=== PATIENT | female | born 1985 | race Caucasian/White ===

== ENCOUNTER 2018-07-19 19:18 | Inpatient (IN) | payer OTHER ==
[~2018-07-19] VITALS: Ht 165.1 cm; Wt 139.2 kg
[~2018-07-19 19:18] MED LIST: PREN1TAB49 PO
[2018-07-19 20:55] VITALS: BP 131/75; PULSE 96; RESP 17
[2018-07-19] MEDS ORDERED: AL HYDROX/MG HYDROX/SIMETH 30 ML CUP PO PRN (21:00)
[2018-07-19] MEDS ORDERED: ACETAMINOPHEN 325 MG TAB PO PRN (21:00)
[2018-07-19] MEDS ORDERED: DEXTROSE 50% 50 ML SYRINGE IV PRN ×2 (22:30)
[2018-07-19] MEDS ORDERED: GLUCOSE GEL 15 GRAM TUBE BUCCAL PRN (22:30)
[2018-07-19] MEDS ORDERED: GLUCAGON 1 MG INJ IM PRN (22:30)
[2018-07-19] MEDS ORDERED: GLUCOSE GEL 15 GRAM TUBE PO PRN ×2 (22:30)
--- NOTE | 2018-07-20 00:21 | TRIAGE ---
OB Triage Datetime Report Generated by CPN: 07/20/2018 00:21 Datetime: 07/19/2018 23:10 Assessment Type: Admission Assessment Vaginal Bleeding: None Maternal Assessment Level of Consciousness: Fully Conscious DTR's/Clonus: DTRs 2+; No Clonus Headache: Denies Blurred Vision: No Respiratory Effort: Unlabored; Regular Rhythm; Equal Expansion Breath Sounds, Left: Clear and Equal Breath Sounds, Right: Clear and Equal Nausea/Vomiting: Denies RUQ Epigastric Pain: Denies Lower Extremities Edema: None Degree: None Upper Extremities Edema: None Degree: None Facial Edema: None Fall Risk Assessment History of Falling: (0) No Secondary Diagnosis: (0) No Ambulatory Aid: (0) Bedrest/Nurse Assist IV Therapy: (0) No Gait: (0) Normal/Bedrest/Immobile Mental Status: (0) Oriented to Own Ability Fall Score: 0 Fall Risk Score Definition: No Risk: No action required Pain Assessment Pain Scale: 0 Pain Presence: None/Denies Pain Type: N/A Vaginal Exam Membrane Status: Intact Datetime: 07/19/2018 22:54 Vaginal Exam Membrane Status: Intact Datetime: 07/19/2018 20:16 Time of Arrival: 07/19/2018 19:13 EGA: 31.0 Arrived By: Ambulatory Arrived From: Home Chief Complaint: sent from clinic d/t newly diagnosed GDM uncontrolled Movement: Present Contractions: Denies/Absent Rupture of Membranes: Denies Vaginal Bleeding: None Vaginal Discharge: Denies Recent Sexual Intercouse: Denies Abdominal Trauma: Not Applicable Patient Complaints: Other Time Provider Notified: 07/20/2018 20:25 Provider Notified: Dr Nazario Initial Plan: [facility]
[2018-07-20] MEDS: INSULIN ASPART [NOVOLOG] 3 ML PEN SC SCH ×4 (09:00→21:32)
[2018-07-20] MEDS: PRENATAL VITAMIN PO SCH (09:21)
[2018-07-20] MEDS: FERROUS SULFATE (EC) 325 MG TAB PO SCH (09:21)
--- NOTE | 2018-07-20 12:45 | RADRPT ---
Vent Rate: 90 bpm RR Interval: 0 msec OH Interval: 124 msec QRS Duration: 72 msec QT Interval: 358 msec QTC Interval: 437 msec P-R-T [place]: 59 - 27 - 29 degrees Normal sinus rhythm Normal ECG Electronically Signed By: Handy Fitch
[2018-07-20] MEDS ORDERED: metFORMIN 500 MG TAB PO SCH (17:35)
--- NOTE | 2018-07-20 18:43 | HP ---
Date/Time of Note Date/Time of Note DATE: 07/20/18 TIME: 18:40 OB - History Hx of Present Chief Complaint: uncontrolled GDM Estimated Due Date: Sep 20, 2018 : 5 Para: 4 Spontaneous : 0 Therapeutic : 0 Care: Good Care Ultrasounds: Normal mid trimester US Obstetrical Complications: Gestational Diabetes Medical Complications: None Past Family/Social History * Past Medical, Surgical, Family and Obstetric Histories reviewed from chart. OB Admission Exam Vital Signs Vital Signs Vital Signs Date Temp Pulse Resp B/P (MAP) Pulse Ox O2 O2 Flow FiO2 Time Delivery Rate 07/19/18 97.8 96 17 131/75 Room Air 20:55 (93) Physical Exam HEENT: WNL Heart: Rhythm Normal Lungs: Clear, Equal Abdomen: WNL Extremities: Normal Reflexes: Normal Heart Rate: 130's Accelerations: Accelerations Present Decelerations: No Decelerations Varibility: Moderate Last 72 hourBlood Glucose Bedside Glucose - 72 Hours Test 07/20/18 08:57 07/20/18 11:19 07/20/18 14:56 Bedside Glucose 107 mg/dL (70-220) 111 mg/dL (70-220) 104 mg/dL (70-220) Last 72 hours Lab Results CBC & BMP 07/19/18 20:58 Liver Function Test 07/19/18 20:58 Alanine Aminotransferase (ALT/SGPT) 14 Albumin 3.5 Alkaline Phosphatase 76 Aspartate Amino Transf (AST/SGOT) 12 L Direct Bilirubin 0.00 Total Protein 6.5 Hemoglobin A1C Test 07/19/18 20:58 Hemoglobin A1c 5.9 OB Assessment/Plan Reason for admission: other Other Assessment: uncontrolled GDM Plan: Other Other plan: Admit ADA diet AccuChecks Perinatology consult MANISH JOHANSEN MD July 20, 2018 18:43
--- NOTE | 2018-07-21 05:40 | CONS ---
DATE OF ADMISSION: 07/19/2018 DATE OF CONSULTATION: 07/20/2018 HISTORY OF PRESENT ILLNESS: The patient is at 31 weeks and 1 day, admitted for diabetes control. Wh en I contact the labor and delivery this morning, there were only 2 available glucose values of fasti ng 107, 2-hour after breakfast 111. RECOMMENDATIONS: Start 500 mg of metformin at bedtime and if her afternoon values are again all norm al, the patient can be discharged home for followup as an outpatient. She also had a chronic hyperte nsion. Blood pressures have been normal to overall moderate range. Dictated By: JULIEN SALINAS MD ST/NTS Conf#: [id number] DID#: [id number] CC: MANISH JOHANSEN MD;*End*
[2018-07-21] MEDS: INSULIN ASPART [NOVOLOG] 3 ML PEN SC SCH (07:35)
[2018-07-21] MEDS: FERROUS SULFATE (EC) 325 MG TAB PO SCH (09:25)
[2018-07-21] MEDS: PRENATAL VITAMIN PO SCH (09:26)
--- NOTE | 2018-07-21 15:56 | QN ---
Documentation Comment Patient was started on metformin 500 mg PO QHS Fasting glucose 97 today Case discussed with Dr Gomez ([facility]) who recommends to d/c patient home MANISH JOHANSEN MD July 21, 2018 15:56
--- NOTE | 2018-07-24 18:00 | DS ---
Date/Time of Note Date/Time of Note DATE: 07/24/18 TIME: 17:59 Obstetrical Discharge Record Final Diagnosis Final Diagnosis: not delivered Other Final Diagnosis Gestational Diabetes, Class A2 Complications Gestational Diabetes Condition on Discharge Physical Assessment Voiding: Yes Bowel Movement: Yes Calf Tenderness: No Patient Condition: Stable MANISH JOHANSEN MD July 24, 2018 18:00
== END 2018-07-21 16:22 | disposition home or self-care (01) | DRG 833 ==
LOC: OBT 19:18 → L-D 19:18 → OBT 20:26 → L-D 20:26
PROVIDERS: ADMIT Obstetrics & Gynecology; ATTEND Obstetrics & Gynecology
DX: O24.419 Gestational diabetes mellitus in pregnancy, unspecified control (principal); Z3A.31 31 weeks gestation of pregnancy
CPT/HCPCS: 76815; 76818; 80053; 81001; 82575; 82962; 83036; 84156; 84560; 85025; 86850; 86900; 86901; 93005; G0463; J1815

== ENCOUNTER 2018-09-04 11:47 | Outpatient (CLI) | payer OTHER ==
[~2018-09-04] VITALS: Ht 165.1 cm; Wt 139.1 kg
[2018-09-04 12:07] VITALS: Ht 165.1 cm; Wt 139.1 kg
[2018-09-04 12:08] VITALS: BP 141/93; PULSE 95; RESP 18
[2018-09-04] MEDS ORDERED: METF-849 PO (12:10)
--- NOTE | 2018-09-04 15:08 | PN ---
Triage Information Date/Time Reason for visit: Extended monitoring.Had a variable earlier Weeks of Gestation 37+ /Para n/a Diabetes: none Hypertention: none Objective Vital Signs Date Temp Pulse Resp B/P (MAP) Pulse Ox O2 O2 Flow FiO2 Time Delivery Rate 09/04/18 98.2 95 18 141/93 12:08 (109) Heart Rate: 140's Contractions: None Results/Medications Results 24 hrs Laboratory Tests Test 09/04/18 14:24 Bedside Glucose 96 Disposition: Discharge Assessment/Plan NST reassuring ad Reactive Discharged with precautions Questions answered F/u with provider Repeat NST BPP in 2days FLORES WHARTON M.D. Sep 04, 2018 15:08
== END 2018-09-04 15:22 | disposition home or self-care (01) ==
LOC: OBT 11:47 → L-D 11:48 → OBT 15:22
PROVIDERS: ATTEND Obstetrics & Gynecology
DX: O62.9 Abnormality of forces of labor, unspecified (principal); Z3A.37 37 weeks gestation of pregnancy
CPT/HCPCS: 82962; Z7500; G0463

== ENCOUNTER 2018-09-15 08:00 | Inpatient (IN) | payer OTHER ==
[~2018-09-15] VITALS: Ht 165.1 cm; Wt 140.5 kg
[~2018-09-15 08:00] MED LIST changes: +METF-849 PO
[2018-09-15] MEDS ORDERED: LACTATED RINGER'S 1,000 ML IV SCH ×2 (08:26→19:56)
[2018-09-15] MEDS ORDERED: LIDOCAINE 1% (MPF) 30 ML INJ INJ PRN (08:30)
[2018-09-15] MEDS ORDERED: MISOPROSTOL 200 MCG TAB PR PRN (08:30)
[2018-09-15] MEDS ORDERED: OXYTOCIN 30 UNITS/LR 500 ML IV SCH ×3 (08:30→13:30)
[2018-09-15] MEDS ORDERED: IBUPROFEN 600 MG TAB PO PRN (08:30)
[2018-09-15] MEDS ORDERED: METHYLERGONOVINE 0.2 MG INJ IM PRN (08:30)
[2018-09-15] MEDS ORDERED: AMPICILLIN 2 GM/NS (PMX) 100 ML IV ONE (08:30)
[2018-09-15] MEDS ORDERED: OXYTOCIN 30 UNITS/LR 500 ML IV PRN (08:30)
[2018-09-15] MEDS ORDERED: BUTORPHANOL 2 MG INJ IV PRN (08:30)
[2018-09-15] MEDS ORDERED: CARBOPROST 250 MCG INJ IM PRN (08:30)
[2018-09-15 09:19] VITALS: Ht 165.1 cm; Wt 140.5 kg
[2018-09-15] MEDS ORDERED: MISOPROSTOL 50 MCG CAPSULE PO ONE (10:09)
[2018-09-15] MEDS ORDERED: AMPICILLIN 1 GM/NS (PMX) 50 ML IV SCH (12:30)
--- NOTE | 2018-09-15 13:18 | HP ---
Date/Time of Note Date/Time of Note DATE: 09/15/18 TIME: 13:15 OB - History Hx of Present Chief Complaint: induction of labor Estimated Due Date: Sep 20, 2018 : 5 Para: 4 Spontaneous : 0 Therapeutic : 0 Care: Good Care Ultrasounds: Normal mid trimester US Obstetrical Complications: Gestational Diabetes Medical Complications: None Past Family/Social History * Past Medical, Surgical, Family and Obstetric Histories reviewed from chart. GBS Status: Negative OB Admission Exam Physical Exam HEENT: WNL Heart: Rhythm Normal Lungs: Clear, Equal Abdomen: WNL Extremities: Normal Reflexes: Normal Cervical Dilatation: Fingertip Effacement: 50% Station: -2 Membranes: Intact Heart Rate: 130's Accelerations: Accelerations Present Decelerations: No Decelerations Varibility: Moderate Last 72 hourBlood Glucose Bedside Glucose - 72 Hours Test 09/15/18 11:36 Bedside Glucose 86 mg/dL (70-220) Last 72 hours Lab Results CBC & BMP 09/15/18 09:32 OB Assessment/Plan Reason for admission: induction of labor Plan: Induction Induction Method: per Misoprostol Protocol MANISH JOHANSEN MD Sep 15, 2018 13:18
[2018-09-15] MEDS ORDERED: LACTATED RINGER'S 1,000 ML IV PRN (19:23)
[2018-09-15] MEDS ORDERED: MINERAL OIL LIGHT 10 ML VIAL TOP ONE (19:30)
[2018-09-15] MEDS ORDERED: DEXTROSE 5%-LR 1,000 ML IV SCH (19:56)
[2018-09-15] MEDS ORDERED: MAGNESIUM SULFATE 4 GM/100 ML 100 ML IV ONE (20:00)
[2018-09-15] MEDS ORDERED: FENTAnyl 2MCG/ML-ROPIV 0.2% 100 ML ONE (20:29)
[2018-09-15] MEDS ORDERED: MAGNESIUM SULFATE 20 GM/500 ML 500 ML IV SCH (20:30)
--- NOTE | 2018-09-15 20:56 | PREAC ---
Date/Time of Note Date/Time of Note DATE: 09/15/18 TIME: 20:54 Anesthesia Eval and Record Evaluation Time Pre-Procedure Interview DATE: 09/15/18 TIME: 20:04 Age 32 Sex female NPO: 8 hrs Preoperative diagnosis iup @ 39 wks., , niddm, gdm, labor Planned procedure seferino Past Medical History Past Medical History: Includes Endo: Diabetes : : (5), Para: (4), Gestational age: (39 wks.), Gestational diabetes (niddm, gdm) Surgery & Anesthesia Issues No known issue Meds Anticoagulation: No Beta Melly within 24 hr: No Reason Beta Melly not given: Pt. not on B-Melly Reported Medications Metformin* (Glucophage*) 500 Mg Tab, 500 MG PO WITH MEALS, #90 TAB 09/04/18 Vits W-Ca,Fe,Fa(<1MG) () 1 Tab Tablet, 1 TAB PO DAILY 01/13/11 Current Medications Lactated Ringer's 1,000 ml @ 75 mls/hr [id number] IV Last administered on 09/15/18at 09:30; Admin Dose 125 MLS/HR; Start 09/15/18 at 08:26 Butorphanol Tartrate (Stadol) 2 mg Q2H PRN IV .PAIN SCALE 6-10; Start 09/15/18 at 08:30 Lidocaine (Xylocaine 1% (Mpf)) 30 ml ONCE PRN INJ .EPISIOTOMY; Start 09/15/18 at 08:30 Oxytocin/Lactated Ringer's 500 ml @ 500 mls/hr ONCE POST IV ; Start 09/15/18 at 08:30 Oxytocin/Lactated Ringer's 500 ml @ 125 mls/hr POST IV ; Start 09/15/18 at 08:30 Ibuprofen (Motrin) 600 mg ONCE PRN PO .PAIN 1-5; Start 09/15/18 at 08:30 Oxytocin/Lactated Ringer's 500 ml @ 0 mls/hr ONCE PRN IV .VAGINAL BLEEDING; Start 09/15/18 at 08:30 Methylergonovine Maleate (Methergine) 0.2 mg ONCE PRN IM .VAGINAL BLEEDING; Start 09/15/18 at 08:30 Carboprost Tromethamine (Hemabate) 250 mcg ONCE PRN IM .VAGINAL BLEEDING; Start 09/15/18 at 08:30 Misoprostol (Cytotec) 1,[address] .VAGINAL BLEEDING; Start 09/15/18 at 08:30 Oxytocin/Lactated Ringer's 500 ml @ 0 mls/hr FOR INDUCTION IV Last administered on 09/15/18at 14:35; Admin Dose 1 MLS/HR; Start 09/15/18 at 13:30 Lactated Ringer's 1,000 ml @ 2,000 mls/hr Q30M PRN IV .ANESTHESIA Last administered on 09/15/18at 19:47; Admin Dose 2,000 MLS/HR; Start 09/15/18 at 19:23 Magnesium Sulfate 500 ml @ 50 mls/hr Q10H IV ; Start 09/15/18 at 20:30 Lactated Ringer's 1,000 ml @ 75 mls/hr [id number] IV ; Start 09/15/18 at 19:56 Dextrose/Lactated Ringer's 1,000 ml @ 75 mls/hr [id number] IV ; Start 09/15/18 at 19:56 Meds reviewed: Yes Allergies Coded Allergies: papaya (Verified Allergy, Mild, RASH, 07/19/18) No Known Allergies (Verified Allergy, Unknown, 07/19/18) Allergies Reviewed: Yes Labs/Studies Labs Reviewed: Reviewed by anesthesiologist Result Diagram: 09/15/18190809/15/181908 Laboratory Tests 09/15/18 19:09 Blood Bank Test 09/15/18 09:32 Antibody Screen NEGATIVE Blood Type A POSITIVE Rh Immune Globulin Candidate NO test: Positive Studies: ECG (n/a), CXR (n/a) Pre-procedure Exam Airway: Adequate mouth opening, Adequate thyromental dist Mallampati: Mallampati II Teeth: Normal Lung: Normal Heart: Normal ASA Physical Status ASA physical status: 2 Emergency: E Planned Anesthetic Neuraxial: Epidural Planned Pain Management Epidural, Parenteral pain med, Local by surgeon Pre-operative Attestations Prior to commencing anesthesia and surgery, the patient was re-evaluated, there was verification of: *The patient's identity *The results of appropriate recent lab work and preoperative vital signs *The above evaluation not changing prior to induction *Anesthetic plan, risk benefits, alternative and complications discussed with patient/family; questions answered; patient/family understands, accepts and wishes to proceed. Lpn Medical Assistant used BEBA VELASCO MD Sep 15, 2018 20:56
[2018-09-15] MEDS ORDERED: NALOXONE (0.4 MG/ML) INJ IV PRN (21:00)
[2018-09-15] MEDS ORDERED: FENTAnyl 2MCG/ML-ROPIV 0.2% 100 ML BAG EPI SCH (21:00)
--- NOTE | 2018-09-16 01:12 | LDN ---
Date/Time of Note Date/Time of Note DATE: 09/16/18 TIME: 01:10 Delivery Summary Weeks of Gestation 39 weeks and 3 days Placenta Delivered: Spontaneously Meconium: none Episiotomy: No Perineal laceration: 0 Anesthesia type: Epidural Estimated blood loss: 150 Sponge & Needle done & correct: Yes All needle counts correct: Yes Any foreign bodies felt in the: No Infant Delivery Information Sex Sex: female Apgars 1 Minute: 8 5 Minute: 9 Suctioning Nose & mouth suctioned at lexa: No Delee suction performed: No Umbilical Cord Umbilical cord with: 3 Vessels Cord presentations: nuchal cord Nuchal cord present X: 2 Cord Blood was obtained: Yes Mother & Baby Disposition Disposition Mom & Baby to Maternity; Good: Yes MANISH JOHANSEN MD Sep 16, 2018 01:12
[2018-09-16] MEDS ORDERED: ONDANSETRON 4 MG INJ IV ONE (01:35)
[2018-09-16] MEDS: LACTATED RINGER'S 1,000 ML IV* SCH (02:39)
[2018-09-16] MEDS ORDERED: DIBUCAINE 1% 30 GM OINT TOP PRN (03:00)
[2018-09-16] MEDS ORDERED: OXYTOCIN 30 UNITS/LR 500 ML IV PRN (03:00)
[2018-09-16] MEDS ORDERED: CARBOPROST 250 MCG INJ IM PRN (03:00)
[2018-09-16] MEDS ORDERED: ACETAMINOPHEN 325 MG TAB PO PRN (03:00)
[2018-09-16] MEDS ORDERED: HYDROCODONE/APAP (5/325) TAB PO PRN (03:00)
[2018-09-16] MEDS ORDERED: BENZOCAINE 20% 56 ML SPRAY TOP PRN (03:00)
[2018-09-16] MEDS ORDERED: WITCH HAZEL/GLYCERIN PAD PR PRN (03:00)
[2018-09-16] MEDS ORDERED: MISOPROSTOL 200 MCG TAB PR PRN (03:00)
[2018-09-16 04:00] VITALS: BP 141/77; PULSE 92; RESP 20
[2018-09-16 04:30] VITALS: BP 121/66; PULSE 84; RESP 19
[2018-09-16] MEDS: IBUPROFEN 600 MG TAB PO SCH ×4 (05:36→23:30)
[2018-09-16 07:45] VITALS: BP 137/77; PULSE 64; RESP 18
--- NOTE | 2018-09-16 07:45 | PAC ---
Date/Time of Note Date/Time of Note DATE: 09/16/18 TIME: 07:45 Post-Anesthesia Notes Post-Anesthesia Note Last documented vital signs Vital Signs Date Temp Pulse Resp B/P (MAP) Pulse Ox O2 O2 Flow FiO2 Time Delivery Rate 09/16/18 84 19 121/66 Room Air 04:30 (84) 09/16/18 98.5 04:00 Activity: WNL Respiratory function: WNL Cardiovascular function: WNL Mental status: Baseline Pain reasonably controlled: Yes Hydration appropriate: Yes Nausea/Vomiting absent: Yes BEBA VELASCO MD Sep 16, 2018 07:45
[2018-09-16] MEDS: SENNA/DOCUSATE NA (8.6MG/50MG) TAB PO SCH ×2 (09:04→21:04)
[2018-09-16 16:00] VITALS: BP 126/69; PULSE 77; RESP 18
[2018-09-16] MEDS ORDERED: ACCU-CHEK XX SCH (17:35)
[2018-09-16 19:30] VITALS: BP 112/81; PULSE 67; RESP 19
[2018-09-17] VITALS: BP 135/71; PULSE 70; RESP 18
[2018-09-17] MEDS: LACTATED RINGER'S 1,000 ML IV* SCH (02:39)
[2018-09-17 04:00] VITALS: BP 114/61; PULSE 76; RESP 19
[2018-09-17] MEDS: IBUPROFEN 600 MG TAB PO SCH ×4 (05:44→23:39)
[2018-09-17 07:30] VITALS: BP 123/67; PULSE 84; RESP 18
[2018-09-17 07:56] VITALS: BP 123/69; PULSE 84; RESP 18
[2018-09-17] MEDS: SENNA/DOCUSATE NA (8.6MG/50MG) TAB PO SCH ×2 (08:38→20:08)
--- NOTE | 2018-09-17 14:12 | QN ---
Documentation Comment No complaint Afebrile VSS Fundus firm Lochia scant PPD #1 Stable Continue present care. MANISH JOHANSEN MD Sep 17, 2018 14:12
[2018-09-17 16:00] VITALS: BP 132/60; PULSE 72; RESP 18
[2018-09-17 19:45] VITALS: BP 123/68; PULSE 83; RESP 18
[2018-09-18] MEDS: LACTATED RINGER'S 1,000 ML IV* SCH ×2 (02:34→05:21)
[2018-09-18 05:00] VITALS: BP 133/74; PULSE 81; RESP 20
[2018-09-18] MEDS: IBUPROFEN 600 MG TAB PO SCH ×2 (05:35→11:33)
[2018-09-18 08:46] VITALS: BP 121/72; PULSE 72; RESP 17
[2018-09-18] MEDS ORDERED: DIPHTH/TET/ACEL PERTUSS (ADULT) 0.5 ML VIAL IM* ONE (09:00)
[2018-09-18] MEDS: SENNA/DOCUSATE NA (8.6MG/50MG) TAB PO SCH (09:26)
--- NOTE | 2018-09-18 12:26 | DS ---
Date/Time of Note Date/Time of Note DATE: 09/18/18 TIME: 12:26 Obstetrical Discharge Record Final Diagnosis Final Diagnosis: Term delivered Vaginal Delivery Obstetrical Delivery: Spontaneous Complications Gestational Diabetes Induction: Yes Condition on Discharge Physical Assessment Voiding: Yes Bowel Movement: Yes Breast: Soft, non-tender, Filling Fundus: Firm Calf Tenderness: No Patient Condition: Stable MANISH JOHANSEN MD Sep 18, 2018 12:26
[2018-09-18 16:38] VITALS: BP 135/75; PULSE 78; RESP 18
--- NOTE | 2018-09-19 18:13 | DELSUM ---
Delivery Summary A-C Datetime Report Generated by CPN: 09/19/2018 18:12 DELIVERY PERSONNEL Desk Editor: Isaías,[place] MATERNAL INFORMATION Delivery Anesthesia: Epidural Medications in Delivery: 30U PITOCIN WITH LR Delivery QBL (ml): 150 Placenta Cultured: No Maternal Complications: None Other Maternal Complications: ELEVATED BLOOD PRESSURES LABOR SUMMARY EDC: 09/20/2018 00:00 No. Babies in Womb: 1 Attempted: No Labor Anesthesia: Epidural LABOR INFORMATION Reason for Induction: Chronic Hypertension; Maternal Diabetes Onset of Labor: 09/15/2018 12:54 Complete Dilatation: 09/16/2018 00:49 Group B Beta Strep: Negative Antibiotics # of Doses: 0 Steroids Given: None Reason Steroids Not Administered: Not Applicable MEMBRANES Membranes Rupture Method: Spontaneous Rupture of Membranes: 09/15/2018 23:55 Length of Rupture (hr): 1.02 Amniotic Fluid Color: Clear Amniotic Fluid Amount: Moderate Amniotic Fluid Odor: None STAGES OF LABOR Stage 1 hr: 11 Stage 1 min: 55 Stage 2 hr: 0 Stage 2 min: 7 Stage 3 hr: 0 Stage 3 min: 3 Total Time in Labor hr: 12 Total Time in Labor min: 5 VAGINAL DELIVERY Episiotomy: None Laceration Extension: N/A Laceration Type: None Laceration Repair: Not Applicable Initial Vag Sponge Count: 10 Final Vag Sponge Count: 10 Initial Vag Sharps Count: 0 Final Vag Sharps Count: 0 Sponge Count Correct: Yes; Vaginal Sweep Performed Sharps Count Correct: Yes BABY A INFORMATION Delivery Date/Time: 09/16/2018 00:56 Method of Delivery: Vaginal Born in Route : No : N/A Forceps: N/A Vacuum Extraction: N/A Shoulder Dystocia : N/A SHOULDER DYSTOCIA BABY A Delivery Date/Time: 09/16/2018 00:56 PRESENTATION/POSITION BABY A Presentation: Cephalic Cephalic Presentation: Vertex Vertex Position: Right Occipital Anterior Breech Presentation: N/A PLACENTA INFORMATION BABY A Placenta Delivery Time : 09/16/2018 00:59 Placenta Method of Delivery: Expressed Placenta Status: Delivered SCORES BABY A Heart Rate 1 min: >100 bpm Resp Effort 1 min: Good Cry Reflex Irritability 1 min: Cough/Sneeze/Pulls Away Muscle Tone 1 min: Active Motion Color 1 min: Blue/Pale Resuscitation Effort 1 min: Tactile Stimulation SCORE 1 MIN: 8 Heart Rate 5 min: >100 bpm Resp Effort 5 min: Good Cry Reflex Irritability 5 min: Cough/Sneeze/Pulls Away Muscle Tone 5 min: Active Motion Color 5 min: Body [place], Extremit Blue Resuscitation Effort 5 min: Tactile Stimulation SCORE 5 MIN: 9 INFORMATION BABY A Gestational Age at Delivery: 39.3 Gestational Status: Full Term- 39- 40.6 Weeks Infant Outcome : Liveborn, with signs of life Infant Condition : Stable Infant Sex: Female IDENTIFICATION/MEDS BABY A ID Band Number: [id number] ID Band Location: Right Leg; Left Arm Sensor Applied: Yes Sensor Number: [id number] Sensor Location : Cord Clamp Vitamin K Given : Not Given Erythromycin Given: Not Given WEIGHT/LENGTH BABY A Birthweight (gm): 3315 Weight (lb): 7 Infant Weight (oz): 5 Length (in): 19.00 Infant Length (cm): 48.26 CORD INFORMATION BABY A No. Cord Vessels: 3 Nuchal Cord : Around Neck x2, Tight Cord Blood Taken: Yes Infant Suction: Mouth; Nose
== END 2018-09-18 18:10 | disposition home or self-care (01) | DRG 807 ==
LOC: L-D 08:08 → PP1 09-16 03:42
PROVIDERS: ADMIT Obstetrics & Gynecology; ATTEND Obstetrics & Gynecology
PROC: 10E0XZZ Delivery of Products of Conception, External Approach (ICD-10-PCS; principal; 2018-09-16)
DX: O24.420 Gestational diabetes mellitus in childbirth, diet controlled (principal); O69.81X0 Labor and delivery complicated by cord around neck, without compression, not applicable or unspecified; Z37.0 Single live birth; Z3A.39 39 weeks gestation of pregnancy
CPT/HCPCS: 62322; 76815; 80053; 81001; 82947; 82962; 84560; 85025; 85384; 85610; 85730; 86592; 86850; 86900; 86901; 87340; J2405; J2590; J3010; J7120; J7121